=== PATIENT | female | born 1970 | race Caucasian/White ===

== ENCOUNTER 2017-02-01 15:00 | Observation (INO) | payer SELFPAY ==
[2017-02-01 16:23] LABS: CHLORIDE,CL 104 mEq/L (98-106); SODIUM,NA 140 mEq/L (136-145)
[2017-02-01] MEDS ORDERED: Albuterol 8 GM Inhaler INH PRN (16:35)
[2017-02-01] MEDS ORDERED: Acetaminophen/oxyCODONE 325-5 MG Tab PO PRN (16:35)
[2017-02-01] MEDS ORDERED: Enoxaparin 30 MG/0.3 ML Syringe SUBCUT SCH (17:15)
[2017-02-01] MEDS ORDERED: 50% Dextrose in Water 50 ML Syringe IVPUSH PRN (17:23)
[2017-02-01] MEDS ORDERED: predniSONE 20 MG Tab PO SCH (17:30)
--- NOTE | 2017-02-01 17:35 | EDM.PDOC ---
ED HPI GENERAL MEDICAL PROBLEM - General Chief Complaint: General Stated Complaint: DIZZY Time Seen by Provider: 02/01/17 15:25 Source of Information: Reports: Patient History Limitations: Reports: No Limitations - History of Present Illness INITIAL COMMENTS - FREE TEXT/NARRATIVE: Keesha is a 46 yo female who presents to the ER initially requesting to have her blood sugar checked. States she became lightheaded and dizzy after having an echocardiogram today. She states she has been dealing with this for quite some time and Dr. Hahn did a cardiac work up yesterday. Nurse checked a blood sugar and was found to be low at 25. Immediately the nurse gave her orange juice, toast and cookies. She states she can tell when she is having blood sugar issues and this is how she felt after the echocardiogram. She admits after getting the initial food she is starting to feel a lot better. Denies any history of diabetes or insulin use. States her laboratory work yesterday was all okay. - Related Data Allergies Allergy/AdvReac Type Severity Reaction Status Date / Time No Known Allergies Allergy Verified 02/01/17 16:21 Home Meds: Home Meds Albuterol Sulfate [Proair Hfa] 2 puff IH QID PRN 06/29/16 [History] Cholecalciferol (Vitamin D3) [Vitamin D3] 1,000 unit PO DAILY 06/29/16 [History] ClonazePAM [KlonoPIN] 1 mg PO TID 06/29/16 [History] Escitalopram Oxalate [Lexapro] 20 mg PO DAILY 06/29/16 [History] Prazosin HCl [Prazosin] 2 mg PO BEDTIME 06/29/16 [History] Vitamin E 1,000 unit PO DAILY 06/29/16 [History] QUEtiapine Fumarate [Seroquel] 25 mg PO 1800 07/01/16 [History] QUEtiapine Fumarate [Seroquel] 50 - 100 mg PO BEDTIME 07/01/16 [History] oxyCODONE HCl/Acetaminophen [Percocet 5-325 mg Tablet] 1 each PO Q4HR PRN #60 tablet 07/03/16 [Rx] Levothyroxine 175 mcg PO ACBRK 02/01/17 [History] Past Medical History Gastrointestinal History: Reports: Bowel Obstruction, Irritable Bowel Syndrome Musculoskeletal History: Reports: Back Pain, Chronic Psychiatric History: Reports: Anxiety, Depression Endocrine/Metabolic History: Reports: Hypothyroidism - Infectious Disease History Infectious Disease History: Reports: Shingles - Past Surgical History GI Surgical History: Reports: Cholecystectomy, Other (See Below) Other GI Surgeries/Procedures: bowel resections Female Surgical History: Reports: Section, Hysterectomy, Other (See Below) Musculoskeletal Surgical History: Reports: Shoulder Surgery, Other (See Below) Other Musculoskeletal Surgeries/Procedures:: back surgery on L5 and S1 Social & Family History - Family History Family Medical History: Noncontributory - Tobacco Use Smoking Status *Q: Never Smoker Second Hand Smoke Exposure: No - Caffeine Use Caffeine Use: Reports: Soda - Alcohol Use Days Per Week of Alcohol Use: 0 - Recreational Drug Use Recreational Drug Use: No ED ROS GENERAL - Review of Systems Review Of Systems: See Below Constitutional: Reports: Diaphoresis, Weight Gain. Denies: Fever, Chills, Decreased Appetite HEENT: Reports: No Symptoms Respiratory: Reports: No Symptoms Cardiovascular: Reports: Lightheadedness. Denies: Chest Pain, Blood Pressure Problem, Dyspnea on Exertion, Syncope Endocrine: Reports: Fatigue, Low Glucose GI/Abdominal: Reports: No Symptoms : Reports: No Symptoms Musculoskeletal: Reports: No Symptoms Skin: Reports: No Symptoms Neurological: Reports: Dizziness. Denies: Confusion Psychiatric: Reports: No Symptoms Hematologic/Lymphatic: Reports: No Symptoms ED EXAM, GENERAL - Physical Exam Exam: See Below Exam Limited By: No Limitations General Appearance: Alert, WD/WN, No Apparent Distress Eye Exam: Bilateral Eye: EOMI, PERRL Ears: Normal External Exam, Normal Canal, Hearing Grossly Normal, Normal TMs Nose: Normal Inspection, No Blood Throat/Mouth: Normal Inspection, Normal Lips, Normal Gums, Normal Oropharynx, No Airway Compromise Head: Atraumatic, Normocephalic Neck: Normal Inspection, Supple Respiratory/Chest: No Respiratory Distress, Lungs Clear, Normal Breath Sounds, No Accessory Muscle Use Cardiovascular: Regular Rate, Rhythm, No Edema, No Gallop, No Murmur GI/Abdominal: Normal Bowel Sounds, Soft, Non-Tender, No Organomegaly, No Distention, No Mass Extremities: Normal Inspection, Normal Capillary Refill Neurological: Alert, Oriented, Normal Cognition, No Motor/Sensory Deficits Psychiatric: Normal Affect, Normal Mood Skin Exam: Warm, Dry, Intact, Normal Color, No Rash Course - Vital Signs Last Recorded V/S: Last Vital Signs Temp 97 F 02/01/17 16:02 Pulse 82 02/01/17 16:02 Resp 18 02/01/17 16:02 BP 115/60 02/01/17 16:02 Pulse Ox 97 02/01/17 16:02 - Orders/Labs/Meds Orders: Medication Orders Albuterol (Ventolin Hfa) 0 gm INH QID PRN PRN Reason: Dyspnea Clonazepam (Klonopin) 1 mg PO TID PRN PRN Reason: ANXIETY Dextrose/Water (Dextrose 50% In Water) 50 ml IVPUSH Q1H PRN PRN Reason: Hypoglycemia Enoxaparin Sodium (Lovenox) 40 mg SUBCUT Q24H DIANA Lactated Ringer's (Ringers, Lactated) 1,000 mls @ 125 mls/hr IV ASDIRECTED DIANA Ptom (Escitalopram Oxalate [Lexapro] 20 Mg) 20 mg PO DAILY DIANA Ptom (Prazosin Hcl [ (Prazosin] 2 Mg)) 2 mg PO BEDTIME DIANA Ptom-Quetiapine 50mg (Tab) 25 mg PO 1800 DIANA Ptom-Quetiapine 50mg (Tab) 50 - 100 mg PO BEDTIME DIANA Oxycodone/Acetaminophen (Percocet 325-5 Mg) 1 tab PO Q4H PRN PRN Reason: Pain Ptom Levothyroxine (175mcg) 1 each PO ACBRK DIANA Prednisone (Prednisone) 20 mg PO BIDMEALS [facility] Labs: Laboratory Tests 02/01/17 Range/Units 15:23 Urine Color Yellow (YELLOW) Urine Appearance Clear (CLEAR) Urine pH 5.5 (4.5-8.0) Ur Specific [place] 1.013 (1.003-1.020) Urine Protein Negative (NEGATIVE) mg/dL Urine Glucose (UA) Negative (NEGATIVE) mg/dL Urine Ketones Negative (NEGATIVE) mg/dL Urine Occult Blood Negative (NEGATIVE) Urine Nitrite Negative (NEGATIVE) Urine Bilirubin Negative (NEGATIVE) Urine Urobilinogen 0.2 (0.2-1.0) EU/dL Ur Leukocyte Esterase Negative (NEGATIVE) Urine RBC Not seen (0-5) /HPF Urine WBC Not seen (0-5) /HPF Ur Epithelial Cells Few H (NOT SEEN) /HPF Urine Mucus Few H (NOT SEEN) /HPF Meds: Medications Generic Name Dose Route Start Last Admin Trade Name Freq PRN Reason Stop Dose Admin Albuterol 0 gm 02/01/17 16:35 Ventolin Hfa INH QID PRN Dyspnea Clonazepam 1 mg 02/01/17 20:00 Klonopin PO TID PRN ANXIETY Dextrose/Water 50 ml 02/01/17 17:23 Dextrose 50% In Water IVPUSH Q1H PRN Hypoglycemia Enoxaparin Sodium 40 mg 02/01/17 20:00 Lovenox SUBCUT Q24H DIANA Lactated Ringer's 1,000 mls @ 125 mls/hr 02/01/17 17:15 Ringers, Lactated IV ASDIRECTED DIANA Ptom (Escitalopram 20 mg 02/02/17 08:00 Oxalate [Lexapro] 20 PO Mg) DAILY DIANA Ptom (Prazosin Hcl [ 2 mg 02/01/17 20:00 Prazosin] 2 Mg) PO BEDTIME DIANA Ptom-Quetiapine 50mg 25 mg 02/01/17 18:00 Tab PO 1800 DIANA Ptom-Quetiapine 50mg 50 - 100 mg 02/01/17 20:00 Tab PO BEDTIME DIANA Oxycodone/Acetaminophen 1 tab 02/01/17 16:35 Percocet 325-5 Mg PO Q4H PRN Pain Ptom Levothyroxine 1 each 02/02/17 07:00 175mcg PO ACBRK DIANA Prednisone 20 mg 02/01/17 17:30 Prednisone PO BIDMEALS DIANA Discontinued Medications Generic Name Dose Route Start Last Admin Trade Name Freq PRN Reason Stop Dose Admin Enoxaparin Sodium 30 mg 02/01/17 17:15 Lovenox SUBCUT Q24H DIANA Departure - Departure Time of Disposition: 16:00 Disposition: Refer to Observation Condition: Good Clinical Impression: Hypoglycemia - Discharge Information - Problem List & Annotations (1) Hypoglycemia SNOMED Code(s): 910722731 Code(s): E16.2 - HYPOGLYCEMIA, UNSPECIFIED Status: Acute Current Visit: Yes - Problem List Review Problem List Initiated/Reviewed/Updated: Yes - Assessment/Plan Admission H&P: Please use this note as an admission H&P Plan: Will admit to Dr. Hahn's services to monitor blood sugars. Insulin level pending to r/o insulinoma. Will closely monitor thru the night. Dr. Mcdaniels consulted and agreed with admission today. Dr. Hahn will follow her during her stay. Regla verbalized understanding and was transferred to the floor in satisfactory condition.
[2017-02-01] MEDS: Lactated Ringers 1,000 ML IV SCH (17:40)
[2017-02-01] MEDS ORDERED: QUETIAPINE 50 MG PO SCH ×2 (18:00→20:00)
[2017-02-01] MEDS ORDERED: Enoxaparin 40 MG/0.4 ML Syringe SUBCUT SCH (20:00)
[2017-02-01] MEDS ORDERED: PRAZOSIN HCL 2 MG PO SCH (20:00)
[2017-02-01] MEDS ORDERED: CLONAZEPAM 1 MG PO PRN (20:00)
[2017-02-02] MEDS: Lactated Ringers 1,000 ML IV SCH (01:20)
[2017-02-02] MEDS ORDERED: LEVOTHYROXINE 175 MCG PO SCH (07:00)
[2017-02-02 07:56] VITALS: BP 116/63
[2017-02-02] MEDS ORDERED: ESCITALOPRAM OXALATE 20 MG PO SCH (08:00)
--- NOTE | 2017-02-03 07:11 | DISCH ---
HOSPITAL COURSE: Keesha Forbes is a young white female, came in with hypoglycemia, blood sugar 25, admitted to the hospital for observation. Serum insulin was drawn. CAT scan was done looking for an insulinoma. PHYSICAL EXAMINATION ON DISCHARGE: NECK: Supple. CHEST: Clear. CARDIAC: Regular. NEUROLOGICAL: She is alert, oriented, want to go home. LABORATORY DATA: Labs here in the hospital, other than the low blood sugars, she was iatrogenically hyperthyroid. DISPOSITION: The patient now discharged home, await results. DISCHARGE MEDICATIONS: Home medications plus the decrease in levothyroxine to 150 mcg. DISCHARGE DIAGNOSIS: 1. HYPOGLYCEMIA. 2. IATROGENICALLY HYPERTHYROIDISM. 3. HISTORY OF ASTHMA. CHINMAY/NETTE /[id number]
== END 2017-02-02 09:10 | disposition home or self-care (01) ==
LOC: CC.ED 15:00 → CC.MS 15:57
PROVIDERS: ADMIT Physician Assistant Medical; ATTEND General Practice
DX: E16.2 Hypoglycemia, unspecified (principal); E05.80 Other thyrotoxicosis without thyrotoxic crisis or storm; F41.9 Anxiety disorder, unspecified; F32.9 Major depressive disorder, single episode, unspecified; Z90.49 Acquired absence of other specified parts of digestive tract; Z98.890 Other specified postprocedural states; Z90.710 Acquired absence of both cervix and uterus; Z79.899 Other long term (current) drug therapy; R07.9 Chest pain, unspecified
CPT/HCPCS: 36415; 74177; 80048; 81001; 82962; 83525; 83735; 84439; 84443; 85025; 93306; 96360; 96361; 96372; 99285; A9270; G0378; J1650; J7120; Q9967

== ENCOUNTER → 2021-05-29 | Day surgery (SDC) | payer MEDICAID ==
[~2021-05-29] MED LIST: Lactated Ringers 1,000 ML IV SCH; Propofol 200 MG/20 ML SDV ONE
[2021-05-29 12:15] VITALS: BP 106/60; PULSE 72
--- NOTE | 2021-05-30 13:48 | OR ---
DATE OF OPERATION: 05/29/2021 PREOPERATIVE DIAGNOSIS: SCREENING COLONOSCOPY. POSTOPERATIVE DIAGNOSIS: SCREENING COLONOSCOPY. SURGEON: Abran Mcdaniels MD PROCEDURE: FULL-LENGTH COLONOSCOPY. ANESTHESIA: MAC. COMPLICATIONS: None. SPECIMEN: None. FINDINGS: Normal full-length colonoscopy. RECOMMENDATIONS: Followup colonoscopy every 10 years. INDICATIONS: The patient is set to donate a kidney to one of her children. It was recommended she have a colonoscopy to be qualified for that. DESCRIPTION OF PROCEDURE: The patient was prepped and draped, placed in the left lateral decubitus position. A lubricated Olympus colonoscope was inserted and easily advanced to the cecum. Direct visualization of the ileocecal valve and appendiceal orifice was accomplished. The bowel prep was excellent. Upon withdrawal of the scope, throughout the entire length of the colon, I could find no signs of any polyps, masses, ulceration, or bleeding sites. No vascular abnormalities or signs of colitis. There were no diverticula. The rectal vault was benign. Retroflexion showed no perianal lesions. Air was suctioned. The scope was removed without complication. LUCIANO/NETTE /[id number]
== END ==
LOC: CC.SDS 09:31
PROVIDERS: ATTEND Family Medicine
DX: Z12.11 Encounter for screening for malignant neoplasm of colon (principal); E78.5 Hyperlipidemia, unspecified; I10 Essential (primary) hypertension; E03.9 Hypothyroidism, unspecified; G47.00 Insomnia, unspecified; E66.9 Obesity, unspecified; E55.9 Vitamin D deficiency, unspecified; Z88.8 Allergy status to other drugs, medicaments and biological substances; Z79.899 Other long term (current) drug therapy; Z79.890 Hormone replacement therapy; Z98.890 Other specified postprocedural states; Z90.49 Acquired absence of other specified parts of digestive tract; Z68.29 Body mass index [BMI] 29.0-29.9, adult
CPT/HCPCS: J2704; J7120

== ENCOUNTER 2024-02-23 17:17 | Emergency (ER) | payer BC ==
[2024-02-23 17:31] VITALS: BP 117/77; PULSE 74
[2024-02-23] MEDS: Orphenadrine 60 MG/2 ML Inj IM ONE (17:39)
[2024-02-23] MEDS: Take Home: Cyclobenzaprine 10 MG Tab, 4 Tab Pack PO ONE (17:39)
== END 2024-02-23 17:47 | disposition home or self-care (01) ==
LOC: CC.ED 17:17
DX: S46.912A Strain of unspecified muscle, fascia and tendon at shoulder and upper arm level, left arm, initial encounter (principal); E03.9 Hypothyroidism, unspecified; Z90.49 Acquired absence of other specified parts of digestive tract; Z90.710 Acquired absence of both cervix and uterus; Z79.890 Hormone replacement therapy; Z79.899 Other long term (current) drug therapy; Z88.8 Allergy status to other drugs, medicaments and biological substances; X50.9XXA Other and unspecified overexertion or strenuous movements or postures, initial encounter; Y93.H2 Activity, gardening and landscaping
CPT/HCPCS: 73030-LT; 96372; 99283; A9270-GY; J2360